=== PATIENT | female | born 1945 | race Caucasian/White ===

== ENCOUNTER → 2017-11-28 | Outpatient (CLI) | payer MEDICARE ==
[~2017-11-28] MED LIST: AMIT75TA PO; DIVA-68 PO; DULO60CA7 PO; FURO-93 PO; FURO40TA6 PO; LEVO75TA5 PO; LOSA50TA2 PO; METO50TA82 PO; NADO80TA PO; PANT40TA3 PO; POTA10TA6 PO; SCOP1PAT11 TD; SUMA100T3 PO
== END ==
LOC: CFH 08:00
PROVIDERS: ATTEND Specialist
DX: G31.9 Degenerative disease of nervous system, unspecified (principal); R41.3 Other amnesia; G25.1 Drug-induced tremor; R51 Headache; W19.XXXA Unspecified fall, initial encounter; Y93.89 Activity, other specified; Y92.89 Other specified places as the place of occurrence of the external cause; Y99.8 Other external cause status
CPT/HCPCS: 70551

== ENCOUNTER → 2018-09-14 | Outpatient (CLI) | payer MEDICARE ==
[~2018-09-14] MED LIST changes: +DIVA-61 PO; -DIVA-68 PO
== END | disposition home or self-care (01) ==
LOC: CFH 09:12
PROVIDERS: ATTEND Nurse Practitioner Psychiatric/Mental Health
DX: M50.322 Other cervical disc degeneration at C5-C6 level (principal); M47.812 Spondylosis without myelopathy or radiculopathy, cervical region; M48.02 Spinal stenosis, cervical region; M12.88 Other specific arthropathies, not elsewhere classified, other specified site; M25.78 Osteophyte, vertebrae; I63.9 Cerebral infarction, unspecified
CPT/HCPCS: 72141

== ENCOUNTER 2020-06-25 13:52 | Emergency (ER) | payer MEDICARE ==
[~2020-06-25] VITALS: Ht 160 cm; Wt 88.9 kg
[~2020-06-25 13:52] MED LIST changes: -NADO80TA PO; +NADO80TA2 PO
--- NOTE | 2020-06-25 14:41 | NUR ---
PT ON MONITOR, NSR NO ECTOPY. RR EQUAL AND UNLABORED.
[2020-06-25] MEDS ORDERED: ACETAMINOPHEN 500 MG TABLET ONE (14:47)
[2020-06-25] MEDS ORDERED: ACETAMINOPHEN 500 MG TABLET PO ONE (15:00)
[2020-06-25] MEDS ORDERED: LOSARTAN 50MG TABLET PO ONE (15:00)
[2020-06-25 15:04] LABS: BASOPHILS % (AUTO) 1 % (0-1); EOSINOPHILS % (AUTO) 0 % (1-7); LYMPHOCYTES % (AUTO) 14 % (22-44); MEAN CORPUSCULAR HEMOGLOBIN 31.2 pg (27.0-34.8); MEAN CORPUSCULAR HGB CONC 32.8 g/dL (32.4-35.8); MEAN PLATELET VOLUME 8.8 fL (7.4-10.4); MONOCYTES % (AUTO) 8 % (2-9); NEUTROPHILS % (AUTO) 77 % (42-75); PLATELET COUNT 215 x10^3/uL (130-400); RED BLOOD COUNT 4.27 x10^6/uL (3.82-5.3); RED CELL DISTRIBUTION WIDTH 13.4 % (9.6-15.2)
[2020-06-25 15:15] LABS: ALBUMIN 3.7 g/dL (3.4-5.0); ANION GAP 3 mmol/L (5-15); CALCIUM 9.4 mg/dL (8.5-10.1); CHLORIDE 110 mmol/L (98-107); CREATININE 0.87 mg/dL (0.55-1.02)
[2020-06-25 15:25] LABS: FREE T4 (FREE THYROXINE) 1.05 ng/dL (0.76-1.46)
--- NOTE | 2020-06-25 16:07 | NUR ---
B/P REMAINS ELEVATED, MEDICATED PER ORDER. NO CP, NO SOB. WILL CONTINUE MONITOR.
[2020-06-25 16:08] LABS: MD SCAN
[2020-06-25 16:34] VITALS: BP 189/66
== END 2020-06-25 16:41 | disposition home or self-care (01) ==
LOC: ED 15:03
DX: I16.9 Hypertensive crisis, unspecified (principal); G44.209 Tension-type headache, unspecified, not intractable; E03.9 Hypothyroidism, unspecified
CPT/HCPCS: 36415; 70450; 80048; 82040; 83036; 84439; 84443; 85025; 93005; 99285

== ENCOUNTER → 2021-03-04 | Outpatient (CLI) | payer MEDICARE | END | disposition home or self-care (01) | LOC: CFH 12:55 | PROVIDERS: ATTEND Nurse Practitioner Family | DX: R91.1 Solitary pulmonary nodule (principal) | CPT/HCPCS: 71250 ==